=== PATIENT | female | born 2000 | race American Indian/Alaskan Native ===

== ENCOUNTER 2022-04-25 12:20 | Emergency (ER) | payer SELFPAY ==
[2022-04-25 13:16] VITALS: BP 131/67
--- NOTE | 2022-04-25 13:40 | XRay Report ---
CHEST 2 VIEWS INDICATION / CLINICAL INFORMATION: Chest Pain. COMPARISON: None available. FINDINGS: SUPPORT DEVICES: None. HEART / MEDIASTINUM: No significant abnormality. LUNGS / PLEURA: No significant pulmonary or pleural abnormality. No pneumothorax. ADDITIONAL FINDINGS: No significant additional findings. IMPRESSION: 1. No acute findings. Signer Name: Pardeep Ruiz MD Signed: 04/25/2022 1:36 PM Workstation Name: [id number]
[2022-04-25 14:30] LABS: Basophils # (Auto) 0.1 K/mm3 (0.0-0.1); Basophils % (Auto) 0.7 % (0.0-1.8); Eosinophils # (Auto) 0.2 K/mm3 (0.0-0.4); Eosinophils % (Auto) 2.5 % (0.0-4.3); Hematocrit 39.1 % (30.3-42.9); Hemoglobin 12.9 gm/dl (10.1-14.3); Lymphocytes # (Auto) 2.2 K/mm3 (1.2-5.4); Lymphocytes % (Auto) 21.4 % (13.4-35.0); Mean Corpuscular HGB Conc 33 % (30-34); Mean Corpuscular Volume 81 fl (79-97); Monocytes # (Auto) 0.4 K/mm3 (0.0-0.8); Monocytes % (Auto) 4.4 % (0.0-7.3); Platelet Count 285 K/mm3 (140-440); Red Blood Count 4.84 M/mm3 (3.65-5.03); Red Cell Distribution Width 13.4 % (13.2-15.2)
[2022-04-25 14:44] LABS: INR 0.93 (0.87-1.13)
[2022-04-25 14:45] LABS: Partial Thromboplastin Time 28.7 Sec. (24.2-36.6)
[2022-04-25 14:57] LABS: Alanine Aminotransferase 12 units/L (7-56); Albumin 4.5 g/dL (3.9-5); BUN/Creatinine Ratio 15; Blood Urea Nitrogen 9 mg/dL (7-17); Calcium 9.3 mg/dL (8.4-10.2); Hemolysis Index 0
--- NOTE | 2022-04-25 16:45 | Emergency Department Report ---
HPI - General Chief Complaint: Chest Pain Time Seen by Provider: 04/25/22 16:44 - HPI HPI: This patient left without being seen after triage. ED Past Medical Hx - Past Medical History Additional medical history: Denies history of thyroid disease - Social History Smoking Status: Never Smoker - Medications Home Medications: Home Medications Medication Instructions Recorded Confirmed Last Taken Type Gentamicin 0.3% Ophth Soln 1 drops OD Q4H #1 bottle 07/11/15 Unknown Rx traMADoL [Ultram 50 MG tab] 25 mg PO Q6HR PRN #14 tablet 07/11/15 Unknown Rx ED Review of Systems ROS: Stated complaint: CHEST PAIN Other details as noted in HPI Physical Exam - Physical Exam Vital Signs: Vital Signs 04/25/22 13:14 Temperature 98.6 F Pulse Rate 72 Respiratory 18 Rate Blood Pressure 131/67 [Left] O2 Sat by Pulse 99 Oximetry ED Course Vital Signs 04/25/22 13:14 Temperature 98.6 F Pulse Rate 72 Respiratory 18 Rate Blood Pressure 131/67 [Left] O2 Sat by Pulse 99 Oximetry ED Medical Decision Making - Lab Data Result diagrams: 04/25/22 13:52 04/25/22 13:52 Critical care attestation.: If time is entered above; I have spent that time in minutes in the direct care of this critically ill patient, excluding procedure time. ED Disposition Clinical Impression: Chest pain Disposition: 07 LEFT WITHOUT BEING SEEN Is pt being admited?: No Does the pt Need Aspirin: No Condition: Stable Instructions: Nonspecific Chest Pain, Adult Time of Disposition: 16:45
== END 2022-04-26 00:30 | disposition left against medical advice (07) ==
LOC: ED 12:20
DX: R07.9 Chest pain, unspecified (principal); Z53.21 Procedure and treatment not carried out due to patient leaving prior to being seen by health care provider
CPT/HCPCS: 36415; 71046; 80053; 83690; 84484; 85025; 85610; 85730; 93005; 99283

== ENCOUNTER 2022-07-08 14:33 | Emergency (ER) | payer OTHER ==
[2022-07-08 14:57] VITALS: BP 126/78
== END 2022-07-08 19:00 | disposition left against medical advice (07) ==
LOC: ED 14:33
DX: R07.9 Chest pain, unspecified (principal); F41.9 Anxiety disorder, unspecified; Z53.21 Procedure and treatment not carried out due to patient leaving prior to being seen by health care provider

== ENCOUNTER 2022-07-15 19:24 | Emergency (ER) | payer OTHER ==
[2022-07-16] MEDS ORDERED: ASPIRIN 325 MG TAB PO ONE (02:58)
[2022-07-16] MEDS ORDERED: SODIUM CHLORIDE 0.9% 1000 ML 1,000 ML IV ONE (02:58)
[2022-07-16] MEDS ORDERED: HYDROcodone/ACETAMINOPHEN 5-325 MG TAB PO STA (02:59)
[2022-07-16 03:25] LABS: Basophils # (Auto) 0.1 K/mm3 (0.0-0.1); Basophils % (Auto) 0.7 % (0.0-1.8); Eosinophils # (Auto) 0.4 K/mm3 (0.0-0.4); Eosinophils % (Auto) 3.9 % (0.0-4.3); Hematocrit 40.5 % (30.3-42.9); Lymphocytes # (Auto) 3.3 K/mm3 (1.2-5.4); Lymphocytes % (Auto) 29.9 % (13.4-35.0); Mean Corpuscular HGB Conc 32 % (30-34); Mean Corpuscular Volume 82 fl (79-97); Monocytes # (Auto) 0.7 K/mm3 (0.0-0.8); Monocytes % (Auto) 6.1 % (0.0-7.3); Platelet Count 254 K/mm3 (140-440); Red Blood Count 4.94 M/mm3 (3.65-5.03); Red Cell Distribution Width 13.4 % (13.2-15.2)
[2022-07-16 03:43] LABS: Alanine Aminotransferase 14 units/L (7-56); Albumin 4.1 g/dL (3.9-5); Blood Urea Nitrogen 15 mg/dL (7-17); Calcium 9.3 mg/dL (8.4-10.2); Hemolysis Index 5
[2022-07-16 04:07] LABS: BUN/Creatinine Ratio 21
--- NOTE | 2022-07-16 05:05 | XRay Report ---
CHEST 2 VIEWS INDICATION / CLINICAL INFORMATION: Chest Pain. COMPARISON: 04/25/2022 FINDINGS: SUPPORT DEVICES: None. HEART / MEDIASTINUM: No significant abnormality. LUNGS / PLEURA: No significant pulmonary or pleural abnormality. No pneumothorax. ADDITIONAL FINDINGS: No significant additional findings. IMPRESSION: 1. No acute findings. Signer Name: Hiro Prakash MD Signed: 07/16/2022 5:01 AM Workstation Name: [id number]
[2022-07-16 07:48] VITALS: BP 141/78
--- NOTE | 2022-07-16 10:46 | Electrocardiograph Report ---
[facility] Test Date: 2022-07-16 Test Time: 03:26:55 Pat Name: YOSHI SALGADO Department: Room: Gender: F [employer]visor [employer]: [id number] : [id number] Requested By: JOON MARLEY Order Number: [id number] Reading MD: Noemi Castillo Measurements Intervals [place] Rate: 66 P: 53 CO: 157 QRS: 81 QRSD: 113 T: 70 QT: 398 QTc: 417 Interpretive Statements Sinus rhythm Atrial premature complex Compared to ECG 04/25/2022 13:33:59 Atrial premature complex(es) now present Sinus bradycardia no longer present Intraventricular conduction delay no longer present Electronically Signed On 07-16-2022 10:46:05 EDT by Noemi Castillo
== END 2022-07-16 08:13 | disposition home or self-care (01) ==
LOC: ED 19:24
DX: R07.9 Chest pain, unspecified (principal); Z53.21 Procedure and treatment not carried out due to patient leaving prior to being seen by health care provider
CPT/HCPCS: 36415; 71046; 80053; 83690; 84484; 84703; 85025; 93005; J7030; 96360; 99284